=== PATIENT | male | born 1995 ===

== ENCOUNTER 2016-07-28 14:22 | Emergency (ER) | payer OTHER ==
[~2016-07-28] VITALS: Ht 172.7 cm; Wt 77.8 kg
[2016-07-28 14:28] VITALS: Ht 172.7 cm; Wt 77.8 kg
[2016-07-28] MEDS ORDERED: ACETAMINOPHEN 500 MG TAB PO ONE (14:42)
[2016-07-28] MEDS ORDERED: IBUPROFEN 600 MG TAB ONE (14:42)
[2016-07-28] MEDS ORDERED: SODIUM CHLORIDE 0.9% 1000ML 2,000 ML IV STA (14:47)
[2016-07-28] MEDS ORDERED: MONT1TAB3 PO (14:49)
[2016-07-28] MEDS ORDERED: FEXO1TAB49 PO (14:49)
--- NOTE | 2016-07-28 15:04 | EMERGENCY ROOM VISIT NOTE ---
History Report prepared by Jefferson: Hardeep Pollard Under the Supervision of: Dr. Tesfaye Freeman M.D. First contact with patient: 14:39 Chief Complaint: FLU LIKE SX Stated Complaint: FLU LIKE SYMPTOMS,FAINTED History of Present Illness The patient is a 21 year old male who presents to the Emergency Room with complaints of a persistent illness that started yesterday morning. He says that he has had generalized achiness, with nausea, fevers, and a bit of a cough. The patient says that his symptoms worsened throughout the day yesterday. He notes that he fainted around 0100 this morning, and per the patient's girlfriend, the patient was out for 20 seconds. The patient did not get hurt, as he was caught by his girlfriend. The patient states that before he passed out, he felt cold and was shaking. He felt sudden abdominal pain, and then woke up on the floor. The patient's girlfriend says that it was hot in their room and the patient had a jacket on. She also notes that the patient's breathing has been shallow and irregular. The patient says that he passed out once when he was much younger. His symptoms have subsided a bit, but the patient had a 103 degree fever on arrival to the ED. The patient denies any sore throat, chest pain, urinary symptoms, diarrhea, or rashes. He notes no major medical problems. He did get his flu shot this year. His roommate is currently sick with an unknown illness. The patient took DayQuil yesterday, and was given Tylenol and Motrin here. He is not aware of any strep or mono exposure. Source of History: patient, spouse/significant other Onset: Yesterday morning Position: other (global - illness) Timing: other (persistent) Associated Symptoms: + LOC (for 20 seconds), + abdominal pain (prior to passing out), + chills, + cough, + fevers, + nausea, No chest pain, No diarrhea , No rash, No sorethroat, No urinary symptoms Note: Associated symptoms: Generalized achiness. Shaky before passing out. Per girlfriend, shallow and irregular breathing. Review of Systems See HPI for pertinent positives & negatives. A total of 10 systems reviewed and were otherwise negative. Past Medical & Surgical Medical Problems: (1) Seasonal allergic reaction Family History No pertinent family history Social History Smoking Status: Never Smoker Marital Status: in relationship Housing Status: lives with roommate Occupation Status: [id number] student Current/Historical Medications Scheduled Fexofenadine Hcl (Allyson Allergy), 180 MG PO QAM Montelukast Sodium (Singulair), 10 MG PO QAM Oseltamivir (Tamiflu), 75 MG PO BID Allergies Coded Allergies: Ham (Unverified Allergy, Unknown, HIVES, 07/28/16) Ahuja (Unverified Allergy, Unknown, HIVES, 07/28/16) Latex1 -Allergic Contact Dermititis (Unverified Allergy, Unknown, UNKNOWN , 07/28/16) NUTS (Unverified Allergy, Unknown, HIVES, 07/28/16) Uncoded Allergies: FRUIT (Allergy, Unknown, HIVES, 07/28/16) Physical Exam Vital Signs Date Time Temp Pulse Resp B/P Pulse Ox O2 Delivery O2 Flow Rate FiO2 07/28/16 16:45 37.2 87 18 119/63 99 07/28/16 15:57 37.2 68 16 119/63 97 07/28/16 15:40 72 18 119/58 98 Room Air 07/28/16 15:02 90 07/28/16 14:28 39.4 110 18 115/70 97 Room Air Physical Exam GENERAL: Patient is in no acute distress. HEENT: No acute trauma, normocephalic atraumatic, mucous membranes moist, no nasal congestion, no scleral icterus. No throat erythema. NECK: No stridor, no adenopathy, no meningismus, trachea is midline. LUNGS: Clear to auscultation bilaterally, no wheeze, no rhonchi, breath sounds equal. Slight dry cough noted. HEART: Without murmurs gallops or rubs, regular rate and rhythm. ABDOMEN: Soft, nontender, bowel sounds positive, no hernias, no peritonitis. EXTREMITIES: No cyanosis or edema, full range of motion of all the joints without pain or difficulty, no signs for acute trauma. NEUROLOGIC: Oriented x 3, no acute motor or sensory deficits, no focal weakness. SKIN: No rash, no jaundice, no diaphoresis. Medical Decision & Procedures ER Provider Diagnostic Interpretation: X-ray results as stated below per interpretation by me and the radiologist: CHEST ONE VIEW PORTABLE CLINICAL HISTORY: Fever, sepsis. COMPARISON STUDY: No previous studies for comparison. FINDINGS: The cardiac and mediastinal contours are normal. There is no evidence of focal pulmonary consolidation. There is no evidence of failure. No pleural effusions are visualized.[ IMPRESSION: No active disease in the chest. Electronically signed by: Miguel Crenshaw M.D. 07/28/2016 3:13 PM Dictated Date/Time: 07/28/2016 3:13 PM Laboratory Results 07/28/16 14:50 Red Blood Count 4.94, Mean Corpuscular Volume 85.4, Mean Corpuscular Hemoglobin 30.0, Mean Corpuscular Hemoglobin Concent 35.1, Mean Platelet Volume 10.2, Neutrophils (%) (Auto) 56.5, Lymphocytes (%) (Auto) 16.9, Monocytes (%) (Auto) 25.0, Eosinophils (%) (Auto) 1.0, Basophils (%) (Auto) 0.3, Neutrophils # (Auto ) 2.24, Lymphocytes # (Auto) 0.67, Monocytes # (Auto) 0.99, Eosinophils # (Auto ) 0.04, Basophils # (Auto) 0.01 07/28/16 14:50 Test 07/28/16 14:40 07/28/16 14:50 07/28/16 15:05 07/28/16 15:25 Influenza Type A Antigen Neg for Influ A (NEG) Influenza Type B Antigen POS for Influ B (NEG) White Blood Count 3.96 K/uL (4.8-10.8) Red Blood Count 4.94 M/uL (4.7-6.1) Hemoglobin 14.8 g/dL (14.0-18.0) Hematocrit 42.2 % (42-52) Mean Corpuscular Volume 85.4 fL (80-100) Mean Corpuscular Hemoglobin 30.0 pg (25-34) Mean Corpuscular Hemoglobin Concent 35.1 g/dl (32-36) Platelet Count 148 K/uL (130-400) Mean Platelet Volume 10.2 fL (7.4-10.4) Neutrophils (%) (Auto) 56.5 % Lymphocytes (%) (Auto) 16.9 % Monocytes (%) (Auto) 25.0 % Eosinophils (%) (Auto) 1.0 % Basophils (%) (Auto) 0.3 % Neutrophils # (Auto) 2.24 K/uL (1.4-6.5) Lymphocytes # (Auto) 0.67 K/uL (1.2-3.4) Monocytes # (Auto) 0.99 K/uL (0.11-0.59) Eosinophils # (Auto) 0.04 K/uL (0-0.5) Basophils # (Auto) 0.01 K/uL (0-0.2) RDW Standard Deviation 39.3 fL (36.4-46.3) RDW Coefficient of Variation 12.5 % (11.5-14.5) Immature Granulocyte % (Auto) 0.3 % Immature Granulocyte # (Auto) 0.01 K/uL (0.00-0.02) Anion Gap 8.0 mmol/L (3-11) Est Creatinine Clear Calc Drug Dose 74.7 ml/min Estimated GFR () 75.5 Estimated GFR (Non- 65.1 BUN/Creatinine Ratio 7.4 (10-20) Calcium Level 8.5 mg/dl (8.5-10.1) Total Bilirubin 0.7 mg/dl (0.2-1) Aspartate Amino Transf (AST/SGOT) 14 U/L (15-37) Alanine Aminotransferase (ALT/SGPT) 21 U/L (12-78) Alkaline Phosphatase 52 U/L (45-117) Total Protein 6.8 gm/dl (6.4-8.2) Albumin 4.0 gm/dl (3.4-5.0) Globulin 2.8 gm/dl (2.5-4.0) Albumin/Globulin Ratio 1.4 (0.9-2) Bedside Lactic Acid Venous 0.85 mmol/L (0.90-1.70) Lactic Acid Level 1.0 mmol/L (0.4-2.0) Test 07/28/16 15:30 Urine Color YELLOW Urine Appearance CLEAR (CLEAR) Urine pH 5.5 (4.5-7.5) Urine Specific Dell 1.006 (1.000-1.030) Urine Protein NEG (NEG) Urine Glucose (UA) NEG (NEG) Urine Ketones NEG (NEG) Urine Occult Blood NEG (NEG) Urine Nitrite NEG (NEG) Urine Bilirubin NEG (NEG) Urine Urobilinogen NEG (NEG) Urine Leukocyte Esterase NEG (NEG) Laboratory results reviewed by me. Medications Administered Medications (Trade) Dose Ordered Sig/Yue Route Start Time Stop Time Status Last Admin Dose Admin Acetaminophen (Tylenol Tab) 1,000 mg STK-MED ONCE PO 07/28/16 14:42 07/28/16 14:43 DC 07/28/16 14:39 1,000 MG Ibuprofen 600 mg 600 mg STK-MED ONCE .ROUTE 07/28/16 14:42 07/28/16 14:43 DC 07/28/16 14:38 600 MG Sodium Chloride (Nss 1000ml) 2,000 ml @ 999 mls/hr Q2H1M STAT IV 07/28/16 14:47 07/28/16 16:47 DC 07/28/16 14:47 999 MLS/HR Oseltamivir Phosphate (Tamiflu Cap) 75 mg NOW STAT PO 07/28/16 15:52 07/28/16 15:53 DC 07/28/16 16:01 75 MG Albuterol (Ventolin Hfa Inhaler) 3 puffs NOW ONCE INH 07/28/16 16:00 07/28/16 16:01 DC 07/28/16 16:02 3 PUFFS ECG Indication: syncope Rate (beats per minute): 90 Rhythm: normal sinus Findings: no acute ischemic change, no ectopy ED Course 1440: The patient was evaluated in room A11B. A complete history and physical exam was performed. 1447: Ordered NSS 2000 ml @ 999 mls/hr IV. 1552: Ordered Tamiflu Cap 75 mg PO. 1600: Ordered Ventolin Hfa Inhaler 3 puffs INH. 1615: I reevaluated the patient and he is resting comfortably. The patient verbally expressed understanding and agreement of the treatment plan. The patient will be discharged. Medical Decision Differential diagnosis includes but is not limited to influenza or flu-like illness, pneumonia, sepsis, dehydration, dysrhythmia, anemia, electrolyte imbalance, UTI. There is no leukocytosis were worrisome anemia. No significant electrolyte abnormality, some dehydration was suggested by his creatinine values. No hepatitis. Influenza testing was positive for influenza B. Chest film does not show pneumonia or CHF. EKG shows a sinus rhythm, no ischemia or dysrhythmia. Urinalysis does not show infection. Blood cultures are pending. Lactic acid level is not elevated making sepsis less likely. The patient received IV saline, oral Tylenol and oral Motrin. He was given albuterol via MDI and oral Tamiflu. The patient's vital signs are stable, he feels improved. He is being discharged with Tamiflu, albuterol, [id number] fever control, rest and hydration. If worsening, he can return. Antibiotics are not indicated. Of note, I think the syncopal event was from his illness, his fever, some dehydration and the hot environment. Impression Primary Impression: Syncope Additional Impression: Influenza B Scribe Attestation The scribe's documentation has been prepared under my direction and personally reviewed by me in its entirety. I confirm that the note above accurately reflects all work, treatment, procedures, and medical decision making performed by me. Departure Information Dispostion Home / Self-Care Prescriptions Oseltamivir (Tamiflu) 75 Mg Cap 75 MG PO BID, #10 CAP Prov: Tesfaye Freeman M.D. 07/28/16 Referrals No Doctor, Assigned (PCP) Forms HOME CARE DOCUMENTATION FORM, IMPORTANT VISIT INFORMATION, School Instructions, Work Instructions Patient Instructions My [facility] Additional Instructions rest fluids isolate yourself from others and wear your mask motrin and or tylenol for fever and aches tamiflu 2x per day for 5 days albuterol 3 puffs every 4-6 hours return if worsening as we discussed Problem Qualifiers
--- NOTE | 2016-07-28 15:15 | DIAGNOSTIC IMAGING REPORT ---
CHEST ONE VIEW PORTABLE CLINICAL HISTORY: Fever, sepsis. COMPARISON STUDY: No previous studies for comparison. FINDINGS: The cardiac and mediastinal contours are normal. There is no evidence of focal pulmonary consolidation. There is no evidence of failure. No pleural effusions are visualized.[ IMPRESSION: No active disease in the chest. Electronically signed by: Miguel Crenshaw M.D. 07/28/2016 3:13 PM Dictated Date/Time: 07/28/2016 3:13 PM
[2016-07-28 15:19] LABS: BASO % 0.3 %; BASO ABS # 0.01 K/uL (0-0.2); COMPLETE YES; HEMATOCRIT 42.2 % (42-52); IG% 0.3 %; LYMPH % 16.9 %; LYMPH ABS # 0.67 K/uL (1.2-3.4); MEAN CELL VOLUME 85.4 fL (80-100); MEAN CORPUSCULAR HGB CONC 35.1 g/dl (32-36); MEAN PLATELET VOLUME 10.2 fL (7.4-10.4); NEUT % 56.5 %; PLATELET COUNT 148 K/uL (130-400); RED BLOOD COUNT 4.94 M/uL (4.7-6.1); WHITE BLOOD COUNT 3.96 K/uL (4.8-10.8)
[2016-07-28 15:25] LABS: BUN/CREATININE RATIO 7.4 (10-20); CALCIUM 8.5 mg/dl (8.5-10.1); CREATININE 1.5 mg/dl (0.60-1.40); POTASSIUM 3.5 mmol/L (3.5-5.1)
[2016-07-28 15:28] LABS: ALB/GLOB RATIO 1.4 (0.9-2)
[2016-07-28] MEDS ORDERED: OSELTAMIVIR PHOSPHATE 75 MG CAP PO STA (15:52)
[2016-07-28] MEDS ORDERED: ALBUTEROL HFA 8 GM INHALER INH ONE (16:00)
[2016-07-28 16:04] LABS: URINE APPEARANCE CLEAR (CLEAR); URINE BILIRUBIN NEG (NEG); URINE COLOR YELLOW; URINE NITRITE NEG (NEG); URINE PH 5.5 (4.5-7.5); URINE SPECIFIC GRAVITY 1.006 (1.000-1.030); UROBILINOGEN NEG (NEG); ZZUR CULT IF INDIC CLEAN CATCH NO
[2016-07-28 16:09] LABS: MANUAL MICROSCOPIC REQUIRED? NO; REVIEW REQ? NO
[2016-07-28] MEDS ORDERED: OSEL75CA12 PO (16:22)
[2016-07-28 16:45] VITALS: BP 119/63; PULSE 87; TEMP 37.2; O2SAT 99
== END 2016-07-28 16:46 | disposition home or self-care (01) ==
LOC: C.EDB 14:25 → C.EDA 16:46
DX: R55 Syncope and collapse (principal); J10.1 Influenza due to other identified influenza virus with other respiratory manifestations; J30.2 Other seasonal allergic rhinitis; Z79.899 Other long term (current) drug therapy